=== PATIENT | female | born 1955 | race Caucasian/White ===

== ENCOUNTER 2017-04-30 10:19 | Day surgery (SDC) | payer MEDICAID ==
[2017-04-30] MEDS ORDERED: LR 1,000 ML IV ONE (10:54)
[2017-04-30] MEDS ORDERED: LIDOCAINE 1% 2 ML INJ ID PRN (10:54)
--- NOTE | 2017-04-30 12:24 | PDGENHP ---
History & Physical Chief Complaint: Screening colonoscopy Relevant Physical Exam: GEN: NAD. Cardiac: RRR. Lungs: CTA B. Abd: Soft, nt, nd
[2017-04-30] MEDS ORDERED: MIDAZOLAM 2 MG/2 ML VIAL IVP ONE (12:30)
--- NOTE | 2017-04-30 12:30 | PDANEPAE ---
ANE History of Present Illness 61 yo for coloscopy ANE Past Medical History - Cardiovascular History Hx Hypertension: No Hx Arrhythmias: No Hx Chest Pain: No Hx Coronary Artery / Peripheral Vascular Disease: No Hx CHF / Valvular Disease: No Hx Palpitations: No Cardiovascular History Comment: LOW BP - Pulmonary History Hx COPD: No Hx Asthma/Reactive Airway Disease: No Hx Recent Upper Respiratory Infection: No Hx Oxygen in Use at Home: No Hx Sleep Apnea: No Sleep Apnea Screening Result - Last Documented: Negative - Neurologic History Hx Cerebrovascular Accident: No Hx Seizures: No Hx Dementia: No - Endocrine History Hx Diabetes: No - Renal History Hx Renal Disorders: No - Liver History Hx Hepatic Disorders: No - Neurological & Psychiatric Hx Hx Neurological and Psychiatric Disorders: No - Cancer History Hx Cancer: No - Congenital Disorder History Hx Congenital Disorders: No - GI History Hx Gastrointestinal Disorders: No - Chronic Pain History Chronic Pain: Yes (sciatica) - Surgical History Prior Surgeries: NONE ANE Review of Systems Review of Systems: - Exercise capacity METS (RN): 5 METS ANE Patient History - Allergies Allergies/Adverse Reactions: No Known Allergies Allergy (Unverified 04/30/17 10:53) - Home Medications Home medications: home medication list seen and reviewed - NPO status NPO Since - Liquids (Date): 04/30/17 NPO Since - Liquids (Time): 02:30 NPO Since - Solids (Date): 04/29/17 NPO Since - Solids (Time): 08:45 - Smoking Hx Smoking Status: Never smoked - Family Anes Hx Family Hx Anesthesia Complications: NONE ANE Labs/Vital Signs - Vital Signs Blood Pressure: 130/76 Heart Rate: 70 Respiratory Rate: 16 O2 Sat (%): 98 Height: 5 ft 8.5 in Weight: 68.492 kg ANE Physical Exam - Airway Neck exam: FROM Mallampati Score: Class 2 Mouth exam: normal dental/mouth exam - Pulmonary Pulmonary: no respiratory distress - Cardiovascular Cardiovascular: regular rate and rhythym - ASA Status ASA Status: I ANE Anesthesia Plan Anesthesia Plan: MAC
[2017-04-30] MEDS ORDERED: PROPOFOL/EMULSION 500 MG/50 ML BOTTLE IV ONE (12:31)
--- NOTE | 2017-04-30 12:55 | GIREPORT ---
[facility] - Endoscopy Department Patient Name: Charlette Her Procedure Date: 04/30/2017 12:26 PM Patient Type: Outpatient Attending / ER Physician: Trevon Miller MD Procedure: Colonoscopy Indications: Screening for colorectal malignant neoplasm Providers: Trevon Miller MD Medicines: Monitored Anesthesia Care Complications: No immediate complications. Description of Procedure: After obtaining informed consent, the scope was passed under direct vision. Throughout the proce dure, the patient's blood pressure, pulse, and oxygen saturations were monitored continuously. The Colonoscope with irrigation channel was introduced through the anus and advanced to the terminal ileum, with identification of the appendiceal orifice and IC valve. The colonoscopy was performe d without difficulty. The patient tolerated the procedure well. The quality of the bowel preparati on was good. Findings: The perianal and digital rectal examinations were normal. The terminal ileum appeared normal. A 2 mm polyp was found in the splenic flexure. The polyp was sessile. The polyp was removed with a cold biopsy forceps. Resection and retrieval were complete. Verification of patient identificati on for the specimen was done by the physician and nurse using the patient's name and date. Estimated blood loss was minimal. Many small-mouthed diverticula were found in the sigmoid colon and descending colon. The retroflexed view of the distal rectum and anal verge was normal and showed no anal or rectal abnormalities. Estimated Blood Loss: Estimated blood loss: none. Post Op Diagnosis: - The examined portion of the ileum was normal. - One 2 mm polyp at the splenic flexure, removed with a cold biopsy forceps. Resected and retrie demian. - Diverticulosis in the sigmoid colon and in the descending colon. - The distal rectum and anal verge are normal on retroflexion view. Recommendation: - Discharge patient to home (with escort). - Resume previous diet. High fiber diet. - Continue present medications. - Repeat colonoscopy in 5-10 years for surveillance based on pathology results. Repeat colonosco py in 5 years if the polyp is found to be adenomatous. Otherwise a repeat colonoscopy in 10 years is recommended. - Your pathology results are available within 10 days. - Thank you for allowing me to participate in the care of your patient. Attending Participation: I personally performed the entire procedure. Trevon Miller MD Trevon Miller MD 04/30/2017 12:54:44 PM Number of Addenda: 0 Note Initiated On: 04/30/2017 12:26 PM Total Procedure Duration Time 0 hours 11 minutes 52 seconds [email or web address]
[2017-04-30 13:04] VITALS: PULSE 64; TEMP 98.1
[2017-04-30 14:11] VITALS: BP 111/59; RESP 16; O2SAT 96
== END 2017-04-30 14:10 | disposition home or self-care (01) ==
LOC: FSGY 10:19
PROVIDERS: ATTEND Internal Medicine Gastroenterology
PROC: 0DBL8ZX Excision of Transverse Colon, Via Natural or Artificial Opening Endoscopic, Diagnostic (ICD-10-PCS; principal; 2017-04-30 11:30)
DX: Z12.11 Encounter for screening for malignant neoplasm of colon (principal); K63.5 Polyp of colon; K57.30 Diverticulosis of large intestine without perforation or abscess without bleeding
CPT/HCPCS: J2704